=== PATIENT | male | born 1985 | race African-American/Black ===

== ENCOUNTER 2016-12-01 20:43 | Emergency (ER) | payer SELFPAY ==
[2016-12-01 21:04] VITALS: BMI 24.9
[2016-12-01] MEDS ORDERED: TORADOL 60 MG VIAL IM ONE (21:42)
--- NOTE | 2016-12-01 21:42 | DR.GENAD ---
HPI - PCP Primary Care Physician: NONE - Complaint/Symptoms Chief Complaint Doctors Comments: Patient admits to low back pain for two weeks. Denies fever, vomitng or diarrhea. Denies trauma. Pain is worse today severity sharp, aggravated by motion, duration two weeks Chief Complaint:: LOWER BACK PAIN AND BILAT LOWER ABDOMINAL PAIN Self Treatment fo Chief Complaint: NONE - Source History Provided: Patient - Mode of Arrival Mode of Arrival: Ambulatory - Timing Onset of Chief Complaint: 11/17/16 PMH - PMH Past Medical History: Yes Past Medical History: Hypertension Past Surgical History: No - Family History History of Family Medical Conditions: No - Social History Does patient currently use any type of tobacco product: Yes Have you used tobacco products in the last 12 months: Yes Type of Tobacco Use: Cigarettes Does any household member use tobacco: Yes Alcohol Use: Heavy Do you use any recreational Drugs:: No Lives With: Family Lives Where: Home - infectious screening In the last 2 months have you had wt loss of >10#?: NO Have you had fever, night sweats or hemotysis?: No Have you traveled outside the country in the last 6 months?: No Isolation: Standard ROS - Review of Systems Eyes: No Symptoms Reported ENTM: No Symptoms Reported Respiratoy: No Symptoms Reported Cardiovascular: No Symptoms Reported Gastrointestinal/Abdominal: No Symptoms Reported Genitourinary: No Symptoms Reported Neurological: No Symptoms Reported Musculoskeletal: No Symptoms Reported Integumentary: No Symptoms Reported Hematologic/Lymphatic: No Symptoms Reported Endocrine: No Symptoms Reported Psychiatric: No Symptoms Reported All Other Systems: Reviewed and Negative PE - Vital Signs Vitals: Temperature 98.1 F Pulse Rate 73 Respiratory Rate 16 Blood Pressure 143/76 O2 Sat by Pulse Oximetry 99 - General Limitations: No Limitations General Appearance: Alert, In No Apparent Distress - Head Head Exam: Normal Inspection, Atraumatic - Eyes Eye exam: Normal Appearance, PERRL, EOMI - ENT ENT Exam: Normal Exam External Ear Exam: Normal External Inspection TM/Canal Exam: Bilateral Normal Nose Exam: Normal Nose Exam Mouth Exam: Normal Inspection Throat Exam: Normal Inspection - Neck Neck Exam: Normal Inspection - Chest Chest Inspection: Normal Inspection - Respiratory Respiratory Exam: Normal Lung Sounds Bilat Respiratory Exam: Bilateral Clear to Auscultation - Cardiovascular Cardiovascular Exam: Regular Rate, Normal Rhythm - Abdominal Exam Abdominal Exam: Normal Inspection, Normal Bowel Sounds Abdominal Tenderness: negative: RUQ, RLQ, LUQ, LLQ, Epigastrium, Suprapubic, Diffuse, Mild, Moderate, Severe, Other - Extremities Extremities Exam: Normal Inspection, Full ROM - Back Back Exam: Normal Inspection, Muscle Spasm, Other (low lumbar tenderness to palpation) - Neurologic Neurological Exam: Alert, Oriented X3, CN II-XII Intact - Psychiatric Psychiatric Exam: Normal Affect - Skin Skin Exam: Warm, Dry Course - Reevaluation 1st: Improved ROR - XRAY XRAY Interpreted by: Radiologist (Lumbar: normal) - Diagnosis Discharge Problem: Muscle spasm of back - Discharge Plan Condition: Stable - Follow ups/Referrals Follow ups/Referrals: NFD,None [Primary Care Provider] - 3 days - Instructions
[2016-12-01] MEDS ORDERED: TORADOL 60 MG VIAL ONE (21:45)
--- NOTE | 2016-12-01 22:08 | RAD ---
EXAM: Lumbar Spine X-Ray INDICATION: Lumbar pain COMPARISION: No priors for comparison TECHNIQUE: AP, lateral L-S junction, and lateral views were obtained, 3 views FINDINGS: There is normal alignment of the lumbar spine. No fracture or subluxation. The vertebral body and in tervertebral disc heights are preserved. The facets appear unremarkable. The surrounding soft tissue s are normal. IMPRESSION: Normal lumbar spine examination Reported By:
[2016-12-01 22:31] VITALS: BP 138/77
== END 2016-12-01 22:38 | disposition home or self-care (01) ==
LOC: ER 21:11
DX: M62.830 Muscle spasm of back (principal)
CPT/HCPCS: 72100; 96372; 99282; 99283; J1885

== ENCOUNTER 2017-07-12 19:01 | Emergency (ER) | payer OTHER ==
[2017-07-12 19:05] VITALS: BP 143/81; BMI 24.9
--- NOTE | 2017-07-12 21:17 | DR.GENAD ---
HPI - PCP Primary Care Physician: NFD - Complaint/Symptoms Chief Complaint:: PT STATES" MY THROAT HURTS I CAN'T HARDLY SWALLOW AND I'M COUGHING ALOT" - Nurses notes reviewed Nurses Notes Review: Yes - Source History Provided: Patient - Mode of Arrival Mode of Arrival: Ambulatory - Timing Onset of Chief Complaint: 07/10/17 PMH - PMH Past Medical History: No Past Medical History: Hypertension Past Surgical History: No - Family History History of Family Medical Conditions: Yes Family Medical History: Hypertension - Social History Does any household member use tobacco: Yes Alcohol Use: Occasionally Do you use any recreational Drugs:: No Lives With: Family Lives Where: Home - infectious screening In the last 2 months have you had wt loss of >10#?: NO Have you had fever, night sweats or hemotysis?: No Have you traveled outside the country in the last 6 months?: No Isolation: Standard PE - Vital Signs Vitals: Temperature 97.4 F Pulse Rate 73 Respiratory Rate 16 Blood Pressure [Right Arm] 138/77 Blood Pressure 143/81 O2 Sat by Pulse Oximetry 99 ROR - Labs Reviewed Laboratory: Streptococcus Screen Negative (NEGATIVE) 07/12/17 19:52 - Discharge Plan Condition: Stable Prescriptions: Amoxicillin [Amoxil 875 mg] 875 mg PO BID #20 tab Ibuprofen [MOTRIN TAB 800 MG *] 800 mg PO Q8H PRN #20 tab PRN Reason: Pain/Inflammation Ranitidine HCl [ZANTAC TAB 150 MG *] 150 mg PO BID #20 tab - Follow ups/Referrals Follow ups/Referrals: NFD,None [Primary Care Provider] - 3 days - Instructions Instructions: Tonsillitis, [id number], Acute Bronchitis, [id number] Additional Instructions: RETURN TO ED IF WORSE.
[2017-07-12] MEDS ORDERED: MOTRIN TAB 800 MG PO ONE ×2 (21:26→21:40)
[2017-07-12] MEDS ORDERED: AMOXIL CAP 500 MG PO ONE ×2 (21:26→21:39)
== END 2017-07-12 21:30 | disposition home or self-care (01) ==
LOC: ER 19:09
DX: J20.9 Acute bronchitis, unspecified (principal); J03.90 Acute tonsillitis, unspecified
CPT/HCPCS: 87070; 87880; 99282